=== PATIENT | female | born 1970 | race Caucasian/White ===

== ENCOUNTER 2018-11-03 19:12 | Emergency (ER) | payer BC ==
--- NOTE | 2018-11-03 19:24 | ERPHSYRPT ---
- History of Present Illness Time Seen by Provider: 11/03/18 19:19 Source: patient Exam Limitations: no limitations Physician History: 48 y/o white female presents with left knee pain. pt was dancing [place]. she noticed pain in left knee. does not recall a specific injury. pt iced left knee and took nsaids. pain improved. pain worsened last couple of days. today at work she felt a "pop" and now hurts to put weight on it. pain initially laterally. today pain mostly posterior knee Method of Injury: unknown Occurred: days ago (9) Quality: sharpness Severity of Pain-Max: moderate Severity of Pain-Current: moderate Lower Extremities Pain: knee: left Modifying Factors: Improves With: movement Associated Symptoms: popping sensation, other (hurts to bear weight) Allergies/Adverse Reactions: erythromycin base [From Erythrocin] Allergy (Verified 11/03/18 19:29) Home Medications: Buspirone HCl [Buspar] 15 mg PO BID 11/03/18 [History] Meloxicam 15 mg PO DAILY 11/03/18 [History] Venlafaxine HCl [Venlafaxine HCl ER] 150 mg PO DAILY 11/03/18 [History] - Review of Systems Constitutional: No Symptoms Eyes: No Symptoms Ears, Nose, & Throat: No Symptoms Respiratory: No Symptoms Cardiac: No Symptoms Abdominal/Gastrointestinal: No Symptoms Genitourinary Symptoms: No Symptoms Musculoskeletal: Injury, Joint Pain (left knee) Skin: No Symptoms Neurological: No Symptoms Psychological: No Symptoms Endocrine: No Symptoms Hematologic/Lymphatic: No Symptoms Immunological/Allergic: No Symptoms All Other Systems: Reviewed and Negative - Past Medical History Pertinent Past Medical History: Yes Neurological History: No Pertinent History ENT History: No Pertinent History Cardiac History: No Pertinent History Respiratory History: No Pertinent History Endocrine Medical History: No Pertinent History Musculoskeletal History: No Pertinent History GI Medical History: No Pertinent History History: No Pertinent History Psycho-Social History: No Pertinent History Female Reproductive Disorders: No Pertinent History - Past Surgical History Neuro Surgical History: No Pertinent History Cardiac: No Pertinent History Respiratory: No Pertinent History Gastrointestinal: No Pertinent History Genitourinary: No Pertinent History Musculoskeletal: No Pertinent History Female Surgical History: No Pertinent History - Nursing Vital Signs Nursing Vital Signs: Initial Vital Signs Temperature 98.5 F 11/03/18 19:14 Pulse Rate 74 11/03/18 19:14 Respiratory Rate 18 01/08/19 19:14 Blood Pressure 145/108 11/03/18 19:14 O2 Sat by Pulse Oximetry 100 11/03/18 19:14 Pain Scale Pain Intensity 4 - Physical Exam General Appearance: mild distress, alert, anxiety Eyes, Ears, Nose, Throat Exam: normal ENT inspection, moist mucous membranes Neck Exam: normal inspection, non-tender, supple, full range of motion Cardiovascular/Respiratory Exam: chest non-tender Gastrointestinal/Abdominal Exam: non-tender Back Exam: normal inspection, normal range of motion, No CVA tenderness, No vertebral tenderness Hips Exam: bilateral: non-tender, normal inspection, normal range of motion, no evidence of injury Legs Exam: bilateral leg: non-tender, normal inspection, normal range of motion , no evidence of injury Knees Exam: right knee: non-tender, normal range of motion, left knee: normal inspection, no evidence of injury, pain (posterior fossa), soft tissue tenderness Ankle Exam: bilateral ankle: non-tender, normal inspection, normal range of motion, no evidence of injury Foot Exam: bilateral foot: non-tender, normal inspection, normal range of motion , no evidence of injury Neuro/Tendon Exam: normal sensation, normal motor functions, responds to pain Mental Status Exam: alert, oriented x 3, cooperative Skin Exam: normal color, warm, dry SpO2 Interpretation: normal Oxygen Delivery: Room Air - Course Nursing assessment & vital signs reviewed: Yes Ordered Tests: Active Orders 24 hr Category Date Time Status KNEE (3 VIEWS) Stat Exams 11/03/18 19:25 Ordered - Progress Progress: unchanged, re-examined Progress Note: 11/03/18 20:06 x-ray of left knee reveal no acute fracture or dislocation Counseled pt/family regarding: diagnosis, need for follow-up, rad results - Departure Time of Disposition: 20:07 Departure Disposition: Home Clinical Impression: Knee pain, left Condition: Stable Critical Care Time: No Referrals: KEELEY SUH [Primary Care Provider] - Additional Instructions: add ibuprofen for pain. follow up with primary doctor for further management Prescriptions: Oxycodone HCl/Acetaminophen [Percocet 5-325 mg Tablet] 1 each PO Q8H PRN PRN #5 tablet MDD 3 PRN Reason: Pain
[2018-11-03 20:35] VITALS: BP 150/78; PULSE 88; O2SAT 98
--- NOTE | 2018-11-04 08:41 | XRAY ---
Indication: Posterior knee pain. Comparison: None 3 views of the left knee demonstrates mild tricompartmental degenerative, greatest lateral compartment. Posterior fabella. No other bony, articular, or soft tissue abnormalities.
== END 2018-11-03 20:36 | disposition home or self-care (01) ==
LOC: ED 19:12
DX: M25.562 Pain in left knee (principal); Z79.899 Other long term (current) drug therapy
CPT/HCPCS: 73562; 99284

== ENCOUNTER 2020-08-14 05:58 | Day surgery (SDC) | payer BC ==
[~2020-08-14 05:58] MED LIST: DIPRIVAN 200 MG/20 ML IV ONE
[2020-08-14] MEDS ORDERED: Lactated Ringers 1,000 ML IV SCH (06:00)
[2020-08-14 06:22] VITALS: O2SAT 98
[2020-08-14 09:13] VITALS: PULSE 62
[2020-08-14 09:44] VITALS: BP 121/77
--- NOTE | 2020-08-14 10:42 | OP ---
SURGERY DATE/TIME: 08/14/2020 0806 PREOPERATIVE DIAGNOSIS: Screening exam. POSTOPERATIVE DIAGNOSIS: Normal colon. PROCEDURE: Colonoscopy. SURGEON: Dr. Haines. ANESTHESIA: MAC. Medications given by anesthesia department. HISTORY: The patient is a 50 year old white female presenting now for screening colonoscopy although the patient reports she has been having problems with intermittent diarrhea up to four or five stools a day in the last two weeks. There has been no blood in the stool. The patient reports a family history of mother with colon polyps and grandfather with colon cancer. The patient is felt to need to have endoscopic evaluation. She was appraised of the risks of the procedure including the risk of perforation, phlebitis, untoward reaction to medication, bleeding and missed lesions. The patient verbalized her understanding and desired to have the procedure performed. DESCRIPTION OF PROCEDURE: The patient was given the medications by the anesthesia department. She had continuous pulse oximetry, ECG monitoring, intermittent blood pressure monitoring and tidal CO2 monitoring during the examination. She was placed in the left lateral decubitus position. A digital rectal examination was performed and revealed normal anal sphincter tone and no masses. The flexible Olympus pediatric colonoscope was used to intubate the rectum. A view of the colon was developed sequentially to the cecum. Upon insertion and withdrawal, including a retroflex view in the rectum, no mucosal lesions were encountered. The scope was removed from the patient who tolerated the procedure well and was sent back to OP recovery in good condition. The prep was noted to be poor as there was liquid stool with particulate matter noted in the sigmoid and areas in the transverse colon precluding visualization of approximately 5 to 10% of colon.
== END 2020-08-14 09:51 | disposition home or self-care (01) ==
LOC: SDC 05:58
PROVIDERS: ATTEND Family Medicine
DX: Z12.11 Encounter for screening for malignant neoplasm of colon (principal); Z80.0 Family history of malignant neoplasm of digestive organs
CPT/HCPCS: 94250; J2704

== ENCOUNTER 2023-06-13 10:25 | Emergency (ER) | payer BC ==
--- NOTE | 2023-06-13 10:34 | ERPHSYRPT ---
- History of Present Illness Time Seen by Provider: 06/13/23 10:34 Historian: patient Exam Limitations: no limitations Physician History: This is a 52-year-old overweight white female patient of Dr. Haines who presents to the emergency department by the instrument technologist/ambulance service who provided independent medical history on this patient with chest pain. She describes the pain as a nonradiating substernal, central pressure. Patient has a history of PTSD and panic attacks and anxiety disorder. She is under a lot of stress at work and she had a very stressful day yesterday at work and carried on into this morning. Patient was sitting at her desk and began having the chest pain/pressure that is described as above. She has not had a fever or cough. She has been ever been diagnosed with cardiac disease. She is a little nauseated. The instrument technologist service provided the patient with 4 baby aspirin and her worker provided her with a single sublingual nitroglycerin tablet. Patient took all her medication as prescribed. Patient also has a history of migraine headaches. Timing/Duration: today Activities at Onset: none Quality: pressure Location: substernal, central Chest Pain Radiation: no radiation Severity of Pain-Max: mild (To moderate) Severity of Pain-Current: mild Modifying Factors: Improves With: nothing Associated Symptoms: denies symptoms Prior Chest Pain/Cardiac Workup: no prior chest pain, no prior cardiac workup Nitro Today/Relief: 0.4 mg x 1 Aspirin Treatment Today: 81 mg x 4, provided by EMS Allergies/Adverse Reactions: erythromycin base [From Erythrocin] Allergy (Mild, Verified 06/13/23 10:36) Nausea Home Medications: Buspirone HCl [Buspar] 20 mg PO BID 11/03/18 [History] Meloxicam 10 mg PO DAILY 11/03/18 [History] Venlafaxine HCl [Venlafaxine HCl ER] 150 mg PO DAILY 11/03/18 [History] Alprazolam [Xanax Xr] 0.5 mg PO DAILY 06/17/19 [History] Trazodone HCl 50 mg [Desyrel 50 mg] 50 mg PO HS 06/17/19 [History] lamoTRIgine [Lamictal] 25 mg PO TID 07/02/22 [History] Hx Influenza Vaccination/Date Given: Yes Hx Pneumococcal Vaccination/Date Given: No Travel Risk - International Travel Have you traveled outside of the country in past 3 weeks: No - Coronavirus Screening Are you exhibiting any of the following symptoms?: No Close contact with a COVID-19 positive Pt in past 14-21 Days: No - Review of Systems Constitutional: No Symptoms Eyes: No Symptoms Ears, Nose, & Throat: No Symptoms Respiratory: No Symptoms Cardiac: Chest Pain Abdominal/Gastrointestinal: No Symptoms Genitourinary Symptoms: No Symptoms Musculoskeletal: No Symptoms Skin: No Symptoms Neurological: No Symptoms Psychological: No Symptoms Endocrine: No Symptoms Hematologic/Lymphatic: No Symptoms Immunological/Allergic: No Symptoms All Other Systems: Reviewed and Negative - Past Medical History Pertinent Past Medical History: Yes Neurological History: Migraines ENT History: No Pertinent History Cardiac History: No Pertinent History Respiratory History: No Pertinent History Endocrine Medical History: No Pertinent History Musculoskeletal History: Osteoarthritis GI Medical History: Gallbladder Disease History: No Pertinent History Psycho-Social History: Anxiety, Depression Female Reproductive Disorders: No Pertinent History Other Medical History: Bariatric sugery, thyroid nodules removed. - Past Surgical History Past Surgical History: Yes Neuro Surgical History: No Pertinent History Cardiac: No Pertinent History Respiratory: No Pertinent History Gastrointestinal: Cholecystectomy Genitourinary: No Pertinent History Musculoskeletal: Orthopedic Surgery Female Surgical History: Section Other Surgical History: X 2, Gastric Bypass, Removal of thyroid nodules, left menisus repair - Social History Smoking Status: Former smoker Exposure to second hand smoke: No Drug Use: none Patient Lives Alone: No - Nursing Vital Signs Nursing Vital Signs: Initial Vital Signs Temperature 96.7 F 06/13/23 10:37 Pulse Rate 75 06/13/23 10:37 Respiratory Rate 18 06/13/23 10:37 Blood Pressure 149/85 06/13/23 10:37 O2 Sat by Pulse Oximetry 95 06/13/23 10:37 Pain Scale Pain Intensity 4 - Physical Exam General Appearance: no apparent distress, alert, anxiety, obese Eye Exam: PERRL/EOMI, eyes nml inspection Ears, Nose, Throat Exam: normal ENT inspection, moist mucous membranes Neck Exam: normal inspection, non-tender, supple, full range of motion Respiratory Exam: normal breath sounds, chest tenderness (Mild pressure, substernal, central without radiation), lungs clear, airway intact, No respiratory distress Cardiovascular Exam: regular rate/rhythm, normal heart sounds, normal peripheral pulses Gastrointestinal/Abdomen Exam: soft, normal bowel sounds, No tenderness Pelvic Exam: not done Rectal Exam: not done Back Exam: normal inspection, normal range of motion, CVA tenderness Extremity Exam: normal inspection, normal range of motion, pelvis stable Neurologic Exam: alert, oriented x 3, cooperative, bingo usher II-XII nml as tested, normal mood/affect, nml cerebellar function, nml station & gait, sensation nml Skin Exam: normal color, warm, dry Lymphatic Exam: No adenopathy SpO2 Interpretation: normal O2 Delivery: Room Air - Course Nursing assessment & vital signs reviewed: Yes EKG Interpreted by Me: RATE (69), Sinus Rhythm, NORMAL AXIS, NORMAL INTERVALS, NORMAL QRS, NORMAL ST-T, Other (No acute ischemic changes on today's twelve-lead EKG.) Ordered Tests: Active Orders 24 hr Category Date Time Status Closing Coordinator STAT Care 06/13/23 10:59 Active EKG-ER Only STAT Care 06/13/23 10:59 Active IV Insertion STAT Care 06/13/23 10:59 Active Pulse Oximetry (ED) STAT Care 06/13/23 10:59 Active CHEST 1 VIEW (PORTABLE) Stat Exams 06/13/23 10:59 Completed CBC W DIFF Stat Lab 06/13/23 10:30 Completed CMP Stat Lab 06/13/23 10:30 Completed D-DIMER QUANTITATIVE Stat Lab 06/13/23 10:30 Completed TROPONIN Q4H Lab 06/13/23 10:30 Completed TROPONIN Q4H Lab 06/13/23 15:00 Ordered TROPONIN Q4H Lab 06/13/23 19:00 Ordered Medication Summary Discontinued Medications Generic Name Dose Route Start Last Admin Trade Name David PRN Reason Stop Dose Admin Morphine Sulfate 2 mg 06/13/23 10:52 06/13/23 11:18 Morphine Sulfate 2 Mg/Ml Inj IV 06/13/23 10:53 2 mg STAT ONE Administration Morphine Sulfate Confirm 06/13/23 11:08 Morphine Sulfate 2 Mg/Ml Inj Administered 06/13/23 11:09 Dose 2 mg .ROUTE .STK-MED ONE Ondansetron HCl 4 mg 06/13/23 10:52 06/13/23 11:16 Ondansetron Hcl 4 Mg/2 Ml Vial IV 06/13/23 10:53 4 mg STAT ONE Administration Ondansetron HCl Confirm 06/13/23 11:08 Ondansetron Hcl 4 Mg/2 Ml Vial Administered 06/13/23 11:09 Dose 4 mg .ROUTE .[facility] ONE Lab/Rad Data: Laboratory Result Diagrams 06/13/23 10:30 06/13/23 10:30 Laboratory Results 06/13/23 06/13/23 06/13/23 Range/Units 10:30 10:30 10:30 WBC (4.0-10.5) x10^3/uL RBC (4.1-5.4) x10^6/uL Hgb (12.0-16.0) g/dL Hct (35-47) % MCV (78-100) fL MCH (26-32) pg MCHC (32-36) g/dL RDW (11.5-14.0) % Plt Count (150-450) x10^3/uL MPV (7.5-11.0) fL Gran % (36.0-66.0) % Immature Gran % (Auto) (0.00-0.4) % Nucleat RBC Rel Count (0.00-0.1) % Eos # (Auto) (0-0.5) x10^3/uL Immature Gran # (Auto) (0.00-0.03) x10^3u/L Absolute Lymphs (auto) (1.0-4.6) x10^3/uL Absolute Monos (auto) (0.0-1.3) x10^3/uL Absolute Nucleated RBC (0.00-0.01) x10^3u/L Lymphocytes % (24.0-44.0) % Monocytes % (0.0-12.0) % Eosinophils % (0.00-5.0) % Basophils % (0.0-0.4) % Absolute Granulocytes (1.4-6.9) x10^3/uL Basophils # (0-0.4) x10^3/uL D-Dimer 0.37 (0.0-0.50) mg/L Sodium 138 (137-145) mmol/L Potassium 4.0 (3.5-5.1) mmol/L Chloride 103 (98-107) mmol/L Carbon Dioxide 29 (22-30) mmol/L Anion Gap 10.3 (5-15) MEQ/L BUN 25 H (7-17) mg/dL Creatinine 0.69 (0.52-1.04) mg/dL Estimated GFR > 60.0 ML/MIN Glucose 95 (74-106) mg/dL Calcium 9.0 (8.4-10.2) mg/dL Total Bilirubin 0.40 (0.2-1.3) mg/dL AST 35 (14-36) U/L ALT 27 (0-35) U/L Alkaline Phosphatase 62 (38-126) U/L Troponin I < 0.012 (0.000-0.034) ng/mL Serum Total Protein 6.4 (6.3-8.2) g/dL Albumin 4.1 (3.5-5.0) g/dL 06/13/23 Range/Units 10:30 WBC 6.7 (4.0-10.5) x10^3/uL RBC 4.36 (4.1-5.4) x10^6/uL Hgb 13.4 (12.0-16.0) g/dL Hct 41.0 (35-47) % MCV 94.0 (78-100) fL MCH 30.7 (26-32) pg MCHC 32.7 (32-36) g/dL RDW 12.7 (11.5-14.0) % Plt Count 376 (150-450) x10^3/uL MPV 9.5 (7.5-11.0) fL Gran % 54.3 (36.0-66.0) % Immature Gran % (Auto) 0.1 (0.00-0.4) % Nucleat RBC Rel Count 0.0 (0.00-0.1) % Eos # (Auto) 0.25 (0-0.5) x10^3/uL Immature Gran # (Auto) 0.01 (0.00-0.03) x10^3u/L Absolute Lymphs (auto) 2.06 (1.0-4.6) x10^3/uL Absolute Monos (auto) 0.69 (0.0-1.3) x10^3/uL Absolute Nucleated RBC 0.00 (0.00-0.01) x10^3u/L Lymphocytes % 30.7 (24.0-44.0) % Monocytes % 10.3 (0.0-12.0) % Eosinophils % 3.7 (0.00-5.0) % Basophils % 0.9 (0.0-0.4) % Absolute Granulocytes 3.65 (1.4-6.9) x10^3/uL Basophils # 0.06 (0-0.4) x10^3/uL D-Dimer (0.0-0.50) mg/L Sodium (137-145) mmol/L Potassium (3.5-5.1) mmol/L Chloride (98-107) mmol/L Carbon Dioxide (22-30) mmol/L Anion Gap (5-15) MEQ/L BUN (7-17) mg/dL Creatinine (0.52-1.04) mg/dL Estimated GFR ML/MIN Glucose (74-106) mg/dL Calcium (8.4-10.2) mg/dL Total Bilirubin (0.2-1.3) mg/dL AST (14-36) U/L ALT (0-35) U/L Alkaline Phosphatase (38-126) U/L Troponin I (0.000-0.034) ng/mL Serum Total Protein (6.3-8.2) g/dL Albumin (3.5-5.0) g/dL - Progress Progress: improved, re-examined Air Movement: good Progress Note: 06/13/23 10:57 This patient's medical issue is 1 of moderate complexity. The level of complexity in the work-up performed is based on review of the patient's past medical history, review the patient's medication list, review of the patient's drug allergy list, history of present illness and physical findings on examination. The work-up includes placement of intravenous line, twelve-lead EKG, CBC, CMP, D-dimer, troponin level, chest x-ray 06/13/23 11:36 Chest x-ray was interpreted by the radiologist and I reviewed the impression. There is no evidence of any acute cardiopulmonary process. Blood Culture(s) Obtained: No Antibiotics given: No Counseled pt/family regarding: lab results, diagnosis, need for follow-up, rad results Medical Desision Making - Independent Historian Additional History obtained from: Family - Diagnostic Testing Diagnostic test were ordered, analyzed, and reviewed by me: Yes Radiological Interpretation: Reviewed by me, Teleradiologist Report - Risk of complications Low Risk: Low risk of morbidity from additional dx testing or treatment - Departure Departure Disposition: Home Clinical Impression: Chest pain Condition: Stable Critical Care Time: No Referrals: PAULINE HAINES [Primary Care Provider] - Follow up/PCP as directed Additional Instructions: Drink plenty of fluids. Take your medication as prescribed. Call your primary care provider today, 06/13/2023, to make arrangements for follow-up appointment for further evaluation and management.
[2023-06-13 10:46] VITALS: BP 149/85; PULSE 75; RESP 18; TEMP 96.7
[2023-06-13] MEDS ORDERED: MORPHINE SULFATE 2 MG INJ IV ONE (10:52)
[2023-06-13] MEDS ORDERED: Zofran 4 MG/2 ML VIAL IV ONE (10:52)
[2023-06-13 11:04] LABS: Absolute Neutrophil Ct (ANC) 3.65 x10^3/uL (1.4-6.9); BASOPHIL % 0.9 % (0.0-0.4); Basophil (Absolute #) 0.06 x10^3/uL (0-0.4); Eosinophil % 3.7 % (0.00-5.0); Eosinophil (Absolute #) 0.25 x10^3/uL (0-0.5); Hemoglobin 13.4 g/dL (12.0-16.0); IMMATURE GRAN # 0.01 x10^3u/L (0.00-0.03); IMMATURE GRAN % 0.1 % (0.00-0.4); Lymphocyte (Absolute #) 2.06 x10^3/uL (1.0-4.6); Lymphocytes % 30.7 % (24.0-44.0); Mean Corpuscular Hemoglobin 30.7 pg (26-32); Mean Corpuscular Hgb Concent. 32.7 g/dL (32-36); Mean Platelet Volume 9.5 fL (7.5-11.0); Monocyte (Absolute #) 0.69 x10^3/uL (0.0-1.3); Monocytes % 10.3 % (0.0-12.0); Neutrophil % 54.3 % (36.0-66.0); Platelet Count 376 x10^3/uL (150-450); Red Blood Count 4.36 x10^6/uL (4.1-5.4); Red Cell Distribution Width 12.7 % (11.5-14.0); White Blood Count 6.7 x10^3/uL (4.0-10.5)
[2023-06-13] MEDS ORDERED: Zofran 4 MG/2 ML VIAL ONE (11:08)
[2023-06-13] MEDS ORDERED: MORPHINE SULFATE 2 MG INJ ONE (11:08)
[2023-06-13 11:27] LABS: ALBUMIN 4.1 g/dL (3.5-5.0); ALKALINE PHOSPHATASE 62 U/L (38-126); ANION GAP 10.3 MEQ/L (5-15); BLOOD UREA NITROGEN 25 mg/dL (7-17); CHLORIDE 103 mmol/L (98-107); Carbon Dioxide 29 mmol/L (22-30); Creatinine 1 0.69 mg/dL (0.52-1.04); EST GLOMERULAR FILTRATION RATE > 60.0 ML/MIN; Glucose 95 mg/dL (74-106); SGOT/AST 35 U/L (14-36); SGPT/ALT 27 U/L (0-35); SODIUM 138 mmol/L (137-145); Total Protein 6.4 g/dL (6.3-8.2)
--- NOTE | 2023-06-13 11:36 | XRAY ---
Indication: Chest pressure. Comparison: December 17, 2010 Portable chest remains inflated and clear. Heart not enlarged. Bony thorax intact. No new/acute findings.
[2023-06-13 12:16] VITALS: O2SAT 96
== END 2023-06-13 12:16 | disposition home or self-care (01) ==
LOC: ED 10:25
DX: R07.9 Chest pain, unspecified (principal); R11.0 Nausea; Z79.899 Other long term (current) drug therapy
CPT/HCPCS: 36415; 71045; 80053; 84484; 85025; 85379; 93005; 93041; 94760; 96374; 96375; 99284; J2270; J2405

== ENCOUNTER 2024-05-10 12:03 | Emergency (ER) | payer BC ==
--- NOTE | 2024-05-10 12:19 | ERPHSYRPT ---
- History of Present Illness Time Seen by Provider: 05/10/24 12:19 Historian: patient Exam Limitations: no limitations Physician History: The patient, with a history of anxiety, presented with a one-day history of dizziness, near syncope, and general malaise. They reported an episode of elevated blood pressure at work, which was 185/125 mmHg, and subsequently decreased to 170/90 mmHg after taking an aspirin. The patient also reported a sensation of tightness in the chest and neck, along with a feeling of impending vomit, although they have not vomited. They also reported some shortness of breath, which they attributed to their anxiety. The patient is on a regimen of buspirone, Effexor, and a third unspecified medication for anxiety. They reported discomfort in the chest upon palpation, localized to the middle of the chest. They also reported tightness in the jaw, but denied any radiating pain. There was no reported swelling in the legs or abdominal pain. However, they did report a recent onset of burning sensation during urination. Timing/Duration: today Activities at Onset: rest Quality: pressure Location: substernal Chest Pain Radiation: no radiation Severity of Pain-Max: severe Severity of Pain-Current: severe Modifying Factors: Improves With: nothing. Worsens With: movement, palpation Associated Symptoms: nausea, palpitations, shortness of breath, headache, No vomiting, No heartburn, No abdominal pain, No cough, No diaphoresis, No chills, No fever, No fatigue, No syncope, No dizziness, No edema Prior Chest Pain/Cardiac Workup: no prior chest pain Nitro Today/Relief: 0.4 mg x 1, provided by ED Aspirin Treatment Today: 81 mg x 4, provided by ED Allergies/Adverse Reactions: erythromycin base [From Erythrocin] Allergy (Mild, Verified 05/10/24 12:14) Nausea Home Medications: Buspirone HCl [Buspar] 20 mg PO BID 11/03/18 [History] Meloxicam 10 mg PO DAILY 11/03/18 [History] Venlafaxine HCl [Venlafaxine HCl ER] 150 mg PO DAILY 11/03/18 [History] ALPRAZolam [Xanax Xr] 0.5 mg PO DAILY 06/17/19 [History] Trazodone HCl 50 mg [Desyrel 50 mg] 50 mg PO HS 06/17/19 [History] lamoTRIgine [Lamictal] 25 mg PO TID 07/02/22 [History] Hx Influenza Vaccination/Date Given: Yes Hx Pneumococcal Vaccination/Date Given: No - Review of Systems All Other Systems: Reviewed and Negative - Past Medical History Pertinent Past Medical History: Yes Neurological History: Migraines ENT History: No Pertinent History Cardiac History: No Pertinent History Respiratory History: No Pertinent History Endocrine Medical History: No Pertinent History Musculoskeletal History: Osteoarthritis GI Medical History: Gallbladder Disease History: No Pertinent History Psycho-Social History: Anxiety, Depression Female Reproductive Disorders: No Pertinent History Other Medical History: Bariatric sugery, thyroid nodules removed. - Past Surgical History Past Surgical History: Yes Neuro Surgical History: No Pertinent History Cardiac: No Pertinent History Respiratory: No Pertinent History Gastrointestinal: Cholecystectomy Genitourinary: No Pertinent History Musculoskeletal: Orthopedic Surgery Female Surgical History: Section Other Surgical History: X 2, Gastric Bypass, Removal of thyroid nodules, left menisus repair - Social History Smoking Status: Former smoker Exposure to second hand smoke: No Drug Use: none Patient Lives Alone: No - Nursing Vital Signs Nursing Vital Signs: Initial Vital Signs Temperature 97.7 F 05/10/24 12:03 Pulse Rate 85 05/10/24 12:03 Respiratory Rate 21 05/10/24 12:03 Blood Pressure 132/91 05/10/24 12:03 O2 Sat by Pulse Oximetry 100 05/10/24 12:03 Pain Scale Pain Intensity 2 - Physical Exam General Appearance: no apparent distress, anxiety Eye Exam: eyes nml inspection Ears, Nose, Throat Exam: normal ENT inspection Neck Exam: normal inspection, supple, full range of motion Respiratory Exam: normal breath sounds, lungs clear, airway intact, No chest tenderness, No respiratory distress Cardiovascular Exam: regular rate/rhythm, normal heart sounds, capillary refill <2 sec, No edema Gastrointestinal/Abdomen Exam: soft, tenderness (suprapubic), No distention, No mass, No guarding, No rebound Extremity Exam: No swelling, No tenderness Neurologic Exam: alert, oriented x 3, cooperative Skin Exam: normal color, warm, dry SpO2 Interpretation: normal O2 Delivery: Room Air - Course Nursing assessment & vital signs reviewed: Yes EKG Interpreted by Me: RATE (83), Sinus Rhythm, NORMAL AXIS, NORMAL INTERVALS, NORMAL QRS, NORMAL ST-T - Radiology Exams Chest X-ray Interpretation: Reviewed by me, Teleradiologist Report, Negative Ordered Tests: Medication Summary Discontinued Medications Generic Name Dose Route Start Last Admin Trade Name David PRN Reason Stop Dose Admin Aspirin 324 mg 05/10/24 12:23 05/10/24 12:28 Aspirin 81 Mg Tab.Chew PO 05/10/24 12:24 Not Given STAT ONE Sodium Chloride 1,000 mls @ 999 mls/hr 05/10/24 12:23 05/10/24 13:38 Sodium Chloride 0.9% 1000 Ml IV 05/10/24 13:23 Infused .Q1H1M STA Infusion Sodium Chloride Confirm 05/10/24 12:29 Sodium Chloride 0.9% 1000 Ml Administered 05/10/24 12:30 Dose 1,000 mls @ ud .ROUTE .STK-MED ONE Acetaminophen 1,000 mg in 100 mls @ 400 mls/hr 05/10/24 12:40 05/10/24 12:43 Ofirmev IV 05/10/24 12:54 400 mls/hr 1HRPRIOR ONE Administration Acetaminophen Confirm 05/10/24 12:42 Ofirmev Administered 05/10/24 12:43 Dose 100 mls @ ud IV .STK-MED ONE Lorazepam 2 mg 05/10/24 12:25 05/10/24 12:41 Lorazepam 2 Mg/1 Ml 2 Mg Vial IV 05/10/24 12:26 Not Given STAT ONE Lorazepam 1 mg 05/10/24 12:40 05/10/24 14:03 Lorazepam 2 Mg/1 Ml 2 Mg Vial IV 05/10/24 12:41 1 mg STAT ONE Administration Lorazepam Confirm 05/10/24 14:02 Lorazepam 2 Mg/1 Ml 2 Mg Vial Administered 05/10/24 14:03 Dose 2 mg .ROUTE .STK-MED ONE Morphine Sulfate 2 mg 05/10/24 13:59 05/10/24 14:09 Morphine Sulfate 2 Mg/Ml Inj IV 05/10/24 14:00 Not Given STAT ONE Nitroglycerin 0.4 mg 05/10/24 12:23 05/10/24 12:30 Nitroglycerin 0.4 Mg (Ed) 0.4 Mg Tab.Subl SL 05/10/24 12:24 0.4 mg STAT ONE Administration Nitroglycerin Confirm 05/10/24 12:29 Nitroglycerin 0.4 Mg (Ed) 0.4 Mg Tab.Subl Administered 05/10/24 12:30 Dose 0.4 mg SL .STK-MED ONE Ondansetron HCl 4 mg 05/10/24 12:23 05/10/24 12:30 Ondansetron Hcl 4 Mg/2 Ml Vial IV 05/10/24 12:24 4 mg STAT ONE Administration Ondansetron HCl Confirm 05/10/24 12:28 Ondansetron Hcl 4 Mg/2 Ml Vial Administered 05/10/24 12:29 Dose 4 mg .ROUTE .STK-MED ONE Lab/Rad Data: Laboratory Result Diagrams 05/10/24 12:15 05/10/24 12:15 Laboratory Results 05/10/24 05/10/24 05/10/24 Range/Units 15:20 12:15 12:15 WBC (3.98-10.04) x10^3/uL RBC (3.93-5.22) x10^6/uL Hgb (11.2-15.7) g/dL Hct (34.1-44.9) % MCV (79.4-94.8) fL MCH (25.6-32.2) pg MCHC (32.2-35.5) g/dL RDW (11.7-14.4) % Plt Count (182-369) x10^3/uL MPV (9.4-12.3) fL Gran % (34.0-71.1) % Immature Gran % (Auto) (0.001-0.429) % Nucleat RBC Rel Count (0.00-0.2) % Eos # (Auto) (0.04-0.36) x10^3/uL Immature Gran # (Auto) (0.001-0.031) x10^3u/L Absolute Lymphs (auto) (1.18-3.74) x10^3/uL Absolute Monos (auto) (0.24-0.86) x10^3/uL Absolute Nucleated RBC (0.00-0.012) x10^3u/L Lymphocytes % (19.3-51.7) % Monocytes % (4.7-12.5) % Eosinophils % (0.7-5.8) % Basophils % (0.1-1.2) % Absolute Granulocytes (1.56-6.13) x10^3/uL Basophils # (0.01-0.08) x10^3/uL PT (9.4-12.5) SECONDS INR (0.8-3.0) APTT (25.1-36.5) SECONDS D-Dimer (0.0-0.50) mg/L Sodium (135-145) mmol/L Potassium (3.5-5.1) mmol/L Chloride (98-107) mmol/L Carbon Dioxide (22-30) mmol/L Anion Gap (5-15) MEQ/L BUN (7-17) mg/dL Creatinine (0.52-1.04) mg/dL Estimated GFR ML/MIN Glucose (74-106) mg/dL Calcium (8.4-10.2) mg/dL Total Bilirubin (0.2-1.3) mg/dL AST (14-36) U/L ALT (0-35) U/L Alkaline Phosphatase (38-126) U/L Troponin I < 0.012 < 0.012 (0.000-0.033) ng/mL NT-Pro-B Natriuret Pep (<300) pg/mL Serum Total Protein (6.3-8.2) g/dL Albumin (3.5-5.0) g/dL TSH 3rd Generation 1.613 (0.470-4.680) mIU/L 05/10/24 05/10/24 05/10/24 Range/Units 12:15 12:15 12:15 WBC 5.2 (3.98-10.04) x10^3/uL RBC 4.66 (3.93-5.22) x10^6/uL Hgb 14.6 (11.2-15.7) g/dL Hct 42.3 (34.1-44.9) % MCV 90.8 (79.4-94.8) fL MCH 31.3 (25.6-32.2) pg MCHC 34.5 (32.2-35.5) g/dL RDW 12.2 (11.7-14.4) % Plt Count 376 H (182-369) x10^3/uL MPV 9.3 L (9.4-12.3) fL Gran % 56.4 (34.0-71.1) % Immature Gran % (Auto) 0.2 (0.001-0.429) % Nucleat RBC Rel Count 0.0 (0.00-0.2) % Eos # (Auto) 0.02 L (0.04-0.36) x10^3/uL Immature Gran # (Auto) 0.01 (0.001-0.031) x10^3u/L Absolute Lymphs (auto) 1.70 (1.18-3.74) x10^3/uL Absolute Monos (auto) 0.48 (0.24-0.86) x10^3/uL Absolute Nucleated RBC 0.00 (0.00-0.012) x10^3u/L Lymphocytes % 32.9 (19.3-51.7) % Monocytes % 9.3 (4.7-12.5) % Eosinophils % 0.4 L (0.7-5.8) % Basophils % 0.8 (0.1-1.2) % Absolute Granulocytes 2.91 (1.56-6.13) x10^3/uL Basophils # 0.04 (0.01-0.08) x10^3/uL PT 10.2 (9.4-12.5) SECONDS INR 0.93 (0.8-3.0) APTT 26.0 (25.1-36.5) SECONDS D-Dimer 0.47 (0.0-0.50) mg/L Sodium 138 (135-145) mmol/L Potassium 3.8 (3.5-5.1) mmol/L Chloride 102 (98-107) mmol/L Carbon Dioxide 29 (22-30) mmol/L Anion Gap 11.6 (5-15) MEQ/L BUN 19 H (7-17) mg/dL Creatinine 0.78 (0.52-1.04) mg/dL Estimated GFR 89.6 ML/MIN Glucose 95 (74-106) mg/dL Calcium 9.5 (8.4-10.2) mg/dL Total Bilirubin 0.40 (0.2-1.3) mg/dL AST 30 (14-36) U/L ALT 28 (0-35) U/L Alkaline Phosphatase 54 (38-126) U/L Troponin I (0.000-0.033) ng/mL NT-Pro-B Natriuret Pep 40.2 (<300) pg/mL Serum Total Protein 7.1 (6.3-8.2) g/dL Albumin 4.4 (3.5-5.0) g/dL TSH 3rd Generation (0.470-4.680) mIU/L - Progress Progress: improved Air Movement: good Progress Note: Cardiac workup negative, low risk. Will d/c with Holter monitor. UA neg for UTI. Advise follow up with PCP. Blood Culture(s) Obtained: No Antibiotics given: No Counseled pt/family regarding: lab results, diagnosis, need for follow-up, rad results Medical Desision Making - Diagnostic Testing Diagnostic test were ordered, analyzed, and reviewed by me: Yes Radiological Interpretation: Interpreted by me, Reviewed by me, Teleradiologist Report - Risk of complications The pt has a mod risk of morbidity or mortality based on: Need for prescription drug management - Departure Departure Disposition: Home Clinical Impression: Chest pain, Anxiety, Palpitations with regular cardiac rhythm Condition: Good Critical Care Time: No Referrals: PAULINE VAZQUEZ [Primary Care Provider] - Follow up/PCP as directed Instructions: Chest Pain (DC)
[2024-05-10 12:23] VITALS: TEMP 97.7
[2024-05-10] MEDS: BABY ASPIRIN 81 MG CHEW PO ONE (12:28)
[2024-05-10] MEDS ORDERED: Zofran 4 MG/2 ML VIAL ONE (12:28)
[2024-05-10] MEDS ORDERED: Sodium Chloride 0.9% 1000 ML 1,000 ML ONE (12:29)
[2024-05-10] MEDS ORDERED: Nitrostat 0.4 MG (ED) SL ONE (12:29)
[2024-05-10] MEDS: Zofran 4 MG/2 ML VIAL IV ONE (12:30)
[2024-05-10] MEDS: Sodium Chloride 0.9% 1000 ML 1,000 ML IV STA (12:30)
[2024-05-10] MEDS: Nitrostat 0.4 MG (ED) SL ONE (12:30)
[2024-05-10 12:33] LABS: Absolute Neutrophil Ct (ANC) 2.91 x10^3/uL (1.56-6.13); BASOPHIL % 0.8 % (0.1-1.2); Basophil (Absolute #) 0.04 x10^3/uL (0.01-0.08); Eosinophil % 0.4 % (0.7-5.8); Eosinophil (Absolute #) 0.02 x10^3/uL (0.04-0.36); Hematocrit 42.3 % (34.1-44.9); Hemoglobin 14.6 g/dL (11.2-15.7); IMMATURE GRAN # 0.01 x10^3u/L (0.001-0.031); IMMATURE GRAN % 0.2 % (0.001-0.429); Lymphocytes % 32.9 % (19.3-51.7); Mean Cell Volume 90.8 fL (79.4-94.8); Mean Corpuscular Hemoglobin 31.3 pg (25.6-32.2); Mean Corpuscular Hgb Concent. 34.5 g/dL (32.2-35.5); Mean Platelet Volume 9.3 fL (9.4-12.3); Monocyte (Absolute #) 0.48 x10^3/uL (0.24-0.86); Monocytes % 9.3 % (4.7-12.5); Neutrophil % 56.4 % (34.0-71.1); Platelet Count 376 x10^3/uL (182-369); Red Blood Count 4.66 x10^6/uL (3.93-5.22); Red Cell Distribution Width 12.2 % (11.7-14.4); White Blood Count 5.2 x10^3/uL (3.98-10.04)
[2024-05-10] MEDS: Ativan 2 MG/1 ML VIAL IV ONE ×2 (12:41→14:03)
[2024-05-10] MEDS ORDERED: OFIRMEV 100 ML IV ONE (12:42)
[2024-05-10] MEDS: OFIRMEV 1,000 MG/100 ML ML IV ONE (12:43)
[2024-05-10 12:50] LABS: D-DIMER QUANTITATIVE 0.47 mg/L (0.0-0.50); INR 0.93 (0.8-3.0); PROTIME 10.2 SECONDS (9.4-12.5)
[2024-05-10 12:55] LABS: ALBUMIN 4.4 g/dL (3.5-5.0); ANION GAP 11.6 MEQ/L (5-15); BILIRUBIN,TOTAL 0.4 mg/dL (0.2-1.3); Calcium 9.5 mg/dL (8.4-10.2); Creatinine 1 0.78 mg/dL (0.52-1.04); EST GLOMERULAR FILTRATION RATE 89.6 ML/MIN; NT PRO BNPII 40.2 pg/mL (<300); Potassium 3.8 mmol/L (3.5-5.1); Total Protein 7.1 g/dL (6.3-8.2)
--- NOTE | 2024-05-10 12:59 | XRAY ---
Indication: Chest pain. Comparison: June 13, 2023 Portable chest again demonstrates normal heart and lungs. Bony thorax intact again with mild degenerative changes. No new/acute findings.
[2024-05-10] MEDS ORDERED: Ativan 2 MG/1 ML VIAL ONE (14:02)
[2024-05-10] MEDS: MORPHINE SULFATE 2 MG INJ IV ONE (14:09)
[2024-05-10 16:23] VITALS: BP 122/76; PULSE 81; RESP 15; O2SAT 99
== END 2024-05-10 16:28 | disposition home or self-care (01) ==
LOC: ED 12:03
DX: R07.9 Chest pain, unspecified (principal); F41.9 Anxiety disorder, unspecified; R00.2 Palpitations; R42 Dizziness and giddiness; R11.0 Nausea; Z79.899 Other long term (current) drug therapy
CPT/HCPCS: 36000; 36415; 71045; 80053; 83880; 84443; 84484; 85025; 85379; 85610; 85730; 93005; 93041; 93225; 94760; 96374; 96375; 99284; J2060; J2405; A9270-GY